=== PATIENT | male | born 1935 | race Caucasian/White ===

== ENCOUNTER 2017-12-12 05:10 | Day surgery (SDC) | payer OTHER, BC ==
[~2017-12-12] VITALS: Ht 177.8 cm; Wt 62.6 kg
[~2017-12-12 05:10] MED LIST: ASPIR 8181 M1 PO; LIPITOR20 MG PO
[2017-12-12 05:50] VITALS: BP 157/69
[2017-12-12] MEDS ORDERED: MELATONIN1 MG PO (06:07)
[2017-12-12 10:26] VITALS: BP 182/84
[2017-12-12 11:10] VITALS: BP 171/72
== END 2017-12-12 11:10 | disposition home or self-care (01) ==
LOC: SDC 05:10
DX: T85.22XA Displacement of intraocular lens, initial encounter (principal); H43.392 Other vitreous opacities, left eye; Y77.2 Prosthetic and other implants, materials and accessory ophthalmic devices associated with adverse incidents
CPT/HCPCS: J0690; J1100; J2405; J2795; J3300